=== PATIENT | female | born 1950 ===

== ENCOUNTER 2019-12-25 05:59 | Day surgery (SDC) | payer OTHER ==
[~2019-12-25 05:59] MED LIST: CARVEDILOL25 MG; COZAAR100 MG PO; FENOFIBRATE150 MG PO; FOLIC ACID20 MG PO; METFORMIN HCL500 M3 PO; PLAVIX75 MG PO; SIMVASTATIN20 MG PO
[2019-12-25] MEDS ORDERED: MACROBID 100 M100 MG PO (09:13)
[2019-12-25] MEDS ORDERED: ACETAMINOPHEN-1 EAC2 PO (09:15)
== END 2019-12-25 13:35 | disposition home or self-care (01) ==
LOC: U 05:59 → CIR.AMB 05:59
PROVIDERS: ATTEND Obstetrics & Gynecology Gynecology
DX: N81.3 Complete uterovaginal prolapse (principal); Z20.828 Contact with and (suspected) exposure to other viral communicable diseases